=== PATIENT | male | born 1995 | race Hispanic/Latino ===

== ENCOUNTER 2022-03-30 18:19 | Emergency (ER) | payer OTHER, SELFPAY ==
[2022-03-30] MEDS ORDERED: Cyclobenzaprine 10 MG TAB ONE (20:32)
[2022-03-30] MEDS ORDERED: Ketorolac Tromethamine 30 MG/ML VIAL ONE (20:32)
== END 2022-03-30 22:21 | disposition home or self-care (01) ==
LOC: ERS 18:19
DX: S16.1XXA Strain of muscle, fascia and tendon at neck level, initial encounter (principal); F17.210 Nicotine dependence, cigarettes, uncomplicated; V89.2XXA Person injured in unspecified motor-vehicle accident, traffic, initial encounter
CPT/HCPCS: 96372; 99283; J1885